=== PATIENT | male | born 1945 | race Caucasian/White ===

== ENCOUNTER 2017-10-26 18:02 | Emergency (ER) | payer OTHER ==
[2017-10-26 18:26] LABS: BASOPHILS % (AUTO) 0.2 % (0.0-5.0); EOSINOPHILS % (AUTO) 1.9 % (0.0-8.0); HEMATOCRIT 37.6 % (42-54); LYMPHOCYTES % (AUTO) 6.9 % (21.0-51.0); MEAN CORPUSCULAR HEMOGLOBIN 32.7 pg (27.0-33.0); MEAN CORPUSCULAR HGB CONC 34.1 g/dL (32.0-36.0); MEAN CORPUSCULAR VOLUME 95.9 fL (79-99); MONOCYTES % (AUTO) 5.6 % (3.0-13.0); NEUTROPHILS % (AUTO) 85.4 % (40.0-77.0); PLATELET COUNT (AUTO) 180 K/uL (130-400); RED BLOOD CELL COUNT(AUTO) 3.92 MIL/uL (4.50-6.20); RED CELL DISTRIBUTION WIDTH 14.8 % (11.0-15.5); WHITE BLOOD COUNT (AUTO) 5.8 K/uL (4.8-10.8)
[2017-10-26] MEDS ORDERED: MORPHINE SULFATE 4 MG/1ML SYG ONE (18:35)
[2017-10-26] MEDS ORDERED: ONDANSETRON HCL MDV 20ML 2 MG/ML VIAL ONE (18:36)
[2017-10-26 18:39] LABS: CARBON DIOXIDE 29 mmol/L (21-32); CHLORIDE 103 mmol/L (101-111); CREATININE 0.8 mg/dL (0.5-1.5); GLOMERULAR FILTR. RATE CALC 100 mL/min (>60); GLUCOSE,RANDOM 127 mg/dL (70-105); POTASSIUM 3.9 mmol/L (3.5-5.1); SODIUM SERUM 139 mmol/L (136-145); UREA NITROGEN, BLOOD 14 mg/dL (7-18)
[2017-10-26 18:53] LABS: ALANINE AMINOTRANSFERASE 43 U/L (12-78); ALBUMIN 3.5 g/dL (3.5-5.0); ASPARTATE AMINOTRANSFERASE 23 U/L (10-37); BILIRUBIN,TOTAL 0.8 mg/dL (0.2-1.0); CREATINE KINASE MB 0.6 ng/mL (0.5-3.6); CREATINE KINASE, TOTAL 58 U/L (21-232); LIPASE < 50 U/L (114-286); TOTAL PROTEIN, SERUM 6.7 g/dL (6.0-8.3)
[2017-10-26] MEDS ORDERED: IOPAMIDOL-370 75 ML VIAL IV ONE (19:06)
[2017-10-26 20:08] LABS: APPEARANCE,URINE Clear (CLEAR); BILIRUBIN,URINE Negative (NEGATIVE); COLOR,URINE Yellow (YELLOW); GLUCOSE, URINE (UA) Negative (NEGATIVE); KETONES,URINE Negative (NEGATIVE); LEUKOCYTE ESTERASE ,URINE Negative (NEGATIVE); NITRATE,URINE Negative (NEGATIVE); OCCULT BLOOD,URINE Negative (NEGATIVE); PROTEIN,URINE Negative (NEGATIVE); UROBILINOGEN,URINE 0.2 mg/dL (0.2-1.0)
== END 2017-10-26 20:30 | disposition home or self-care (01) ==
LOC: EDH 18:02
DX: N20.0 Calculus of kidney (principal); K59.00 Constipation, unspecified; I25.10 Atherosclerotic heart disease of native coronary artery without angina pectoris; I10 Essential (primary) hypertension; E78.5 Hyperlipidemia, unspecified; Z88.6 Allergy status to analgesic agent
CPT/HCPCS: 36415; 71045; 74178; 80053; 81003; 82550; 82553; 83690; 84484; 85025; 96361; 96374; 96375; 99285; J2270; Q9967

== ENCOUNTER → 2019-02-18 | Outpatient (CLI) | payer OTHER | END | disposition home or self-care (01) | LOC: RAH 08:49 | PROVIDERS: ATTEND Physical Medicine & Rehabilitation | DX: M25.511 Pain in right shoulder (principal) | CPT/HCPCS: 73030 ==

== ENCOUNTER → 2019-02-19 | Outpatient (CLI) | payer OTHER | END | disposition home or self-care (01) | LOC: RAH 14:24 | PROVIDERS: ATTEND Physical Medicine & Rehabilitation | DX: M47.812 Spondylosis without myelopathy or radiculopathy, cervical region (principal); M48.02 Spinal stenosis, cervical region; M25.78 Osteophyte, vertebrae | CPT/HCPCS: 72052 ==

== ENCOUNTER → 2020-03-10 | Outpatient (CLI) | payer OTHER ==
[~2020-03-10] MED LIST: GADODIAMIDE 10 MMOL/20 ML VIAL IV ONE
[2020-03-10 11:59] LABS: CREATININE 0.8 mg/dL (0.5-1.5)
== END | disposition home or self-care (01) ==
LOC: RAH 10:49
PROVIDERS: ATTEND Nurse Practitioner
DX: M47.12 Other spondylosis with myelopathy, cervical region (principal)
CPT/HCPCS: 36415; 82565; 84520; A9579

== ENCOUNTER → 2020-03-11 | Outpatient (CLI) | payer OTHER | END | disposition home or self-care (01) | LOC: RAH 13:29 | PROVIDERS: ATTEND Nurse Practitioner | DX: M47.12 Other spondylosis with myelopathy, cervical region (principal); M50.021 Cervical disc disorder at C4-C5 level with myelopathy; M25.78 Osteophyte, vertebrae; M48.02 Spinal stenosis, cervical region | CPT/HCPCS: 72040; 72156; A9579 ==

== ENCOUNTER → 2020-08-16 | Outpatient (CLI) | payer MEDICARE | END | disposition home or self-care (01) | LOC: RAH 13:48 | PROVIDERS: ATTEND Physical Medicine & Rehabilitation | DX: S22.32XA Fracture of one rib, left side, initial encounter for closed fracture (principal); M47.816 Spondylosis without myelopathy or radiculopathy, lumbar region; M54.5 Low back pain; M85.80 Other specified disorders of bone density and structure, unspecified site; X58.XXXA Exposure to other specified factors, initial encounter; Y92.89 Other specified places as the place of occurrence of the external cause; Y93.89 Activity, other specified; Y99.8 Other external cause status | CPT/HCPCS: 71100; 72100 ==

== ENCOUNTER → 2020-09-09 | Outpatient (CLI) | payer MEDICARE | END | disposition home or self-care (01) | LOC: RAH 07:25 | PROVIDERS: ATTEND Physical Medicine & Rehabilitation | DX: M48.061 Spinal stenosis, lumbar region without neurogenic claudication (principal); M51.27 Other intervertebral disc displacement, lumbosacral region; M62.830 Muscle spasm of back; M89.38 Hypertrophy of bone, other site | CPT/HCPCS: 72148 ==

== ENCOUNTER → 2023-05-03 | Outpatient (CLI) | payer MEDICARE ==
[~2023-05-03] MED LIST changes: +FINA5TAB41 PO; -GADODIAMIDE 10 MMOL/20 ML VIAL IV ONE; +METO-408 PO; +OMEP40CA21 PO; +TERA5CAP4 PO
== END | disposition home or self-care (01) ==
LOC: RAH 14:31
PROVIDERS: ATTEND Internal Medicine Nephrology
DX: M48.07 Spinal stenosis, lumbosacral region (principal); M54.50 Low back pain, unspecified; M47.816 Spondylosis without myelopathy or radiculopathy, lumbar region; M41.86 Other forms of scoliosis, lumbar region; N28.1 Cyst of kidney, acquired
CPT/HCPCS: 72148

== ENCOUNTER → 2024-04-06 | Outpatient (CLI) | payer MEDICARE | END | disposition home or self-care (01) | LOC: RAH 12:38 | PROVIDERS: ATTEND Internal Medicine Cardiovascular Disease | DX: I34.0 Nonrheumatic mitral (valve) insufficiency (principal); I11.9 Hypertensive heart disease without heart failure | CPT/HCPCS: 93306 ==

== ENCOUNTER 2024-09-26 14:05 | Emergency (ER) | payer OTHER, MEDICARE ==
[~2024-09-26] VITALS: Ht 170.2 cm; Wt 76.2 kg
--- NOTE | 2024-09-26 14:25 | EKG ---
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
[2024-09-26 14:41] LABS: BASOPHILS # (AUTO) 0.02 K/uL (0.00-0.20); BASOPHILS % (AUTO) 0.2 % (0.0-5.0); EOSINOPHILS # (AUTO) 0.04 K/uL (0.00-0.70); EOSINOPHILS % (AUTO) 0.4 % (0.0-8.0); HEMATOCRIT 41.1 % (42-54); IMMATURE GRANULOCYTE ABSOLUTE 0.03 K/uL (0-1); LYMPHOCYTES # (AUTO) 0.6 K/uL (1.0-4.8); MEAN CORPUSCULAR HGB CONC 33.1 g/dL (32.0-36.0); MEAN CORPUSCULAR VOLUME 96.7 fL (79-99); MONOCYTES # (AUTO) 0.7 K/uL (0.1-1.0); MONOCYTES % (AUTO) 6.5 % (3.0-13.0); NEUTROPHILS # (AUTO) 9.2 K/uL (1.8-7.7); NEUTROPHILS % (AUTO) 86.6 % (40.0-77.0); PLATELET COUNT (AUTO) 180 K/uL (130-400); RED BLOOD CELL COUNT(AUTO) 4.25 MIL/uL (4.50-6.20); RED CELL DISTRIBUTION WIDTH 13.2 % (11.0-15.5); WHITE BLOOD COUNT (AUTO) 10.6 K/uL (4.8-10.8)
--- NOTE | 2024-09-26 14:47 | ERN ---
General Chief Complaint: Constipation Stated Complaint: INTESTINAL BLOCKAGE,URINE RETENTION, NO BOWEL MOVE Time Seen by MD: 14:12 Time Seen by Midlevel: 14:12 Source: patient History of Present Illness Initial Comments The patient is an 79-year-old male with a past medical history of pancreatic cancer with pancreatic and small-bowel resection presenting to the emergency department for evaluation of constipation. Patient has been unable to have a bowel movement in four days. He does report having a history of constipation and has been disimpacted in the past. He was not passing gas at this time. He does have a history of BPH and states he was also not able to urinate. He last urinated 8 hours ago at approximately 6:00 a.m. today. He was now reporting some mild suprapubic abdominal pain. Denies any other symptoms at this time. Allergies: Coded Allergies: aspirin (Unverified Allergy, Intermediate, HIVES, ITCHING, 05/19/13) Home Meds Reported Medications Omeprazole (Omeprazole) 40 Mg Capsule.dr, 40 MG PO DAILY, CAP 04/28/23 Terazosin HCl (Terazosin HCl) 5 Mg Capsule, 5 MG PO DAILY, CAP 04/28/23 Finasteride (Finasteride) 5 Mg Tablet, 5 MG PO DAILY, TAB 04/28/23 Metoprolol Succinate (Metoprolol Succinate) 25 Mg Tab.er.24h, 25 MG PO DAILY, TAB 04/28/23 Past Medical History Past Medical History: No Pertinent History Medical History Other: Pancreatic CA Past Surgical History: Other Surgical History Other: WHIPPLE PROCEDURE, SHOULDER SURGERY, SPINAL SURGERY, Social History Social History: Lives with family ROS Dictation CONSTITUTIONAL: Negative except for HPI HEAD/FACE: Negative except for HPI EENT: Negative except for HPI RESPIRATORY: Negative except for HPI GASTROINTESTINAL/ABDOMINAL: Negative except for HPI GENITOURINARY: Negative except for HPI MUSCULOSKELETAL: Negative except for HPI INTEGUMENTARY: Negative except for HPI NEUROLOGICAL/PSYCH: Negative except for HPI HEMATOLOGIC/LYMPHATIC: Negative except for HPI All Systems Negative, Except as noted above. 13 point review of systems assessed and all negative except for above. Physical Exam Physical Exam Dictation Vital Signs reviewed General Appearance: Alert, oriented x 3, no acute distress, well developed, nourished. Head and Face: non-traumatic. Eyes: PERRL, pink conjunctivas, eyelid no trauma, anterior chamber with arcus senilis. Ears: Pinnas intact and no signs of trauma or erythema ear canals clear and no discharge TM no erythema Nose: No discharge, no bleeding. Oropharynx: Mouth normal, tongue pink, pharynx clear,no erythema, tonsils no exudates, no abscesses noted, mucous membrane moist Neck: Supple, non-tender, no thyromegaly, no masses, no JVD, no bruits Breast:Deferred Chest:No tenderness, no crepitus, no paradoxical movement, no retractions Lungs:Clear, well-ventilated, symmetric, no rales, no wheezing, no rhonchi, no stridor, good breath sounds bilaterally Heart: Regular rate, regular rhythm, no murmur, no gallops Vascular: no peripheral edema, Abdomen: Soft, positive bowel sounds, nondistended, no guarding, Suprapubic abdominal tenderness, no rebound, no masses no hepatomegaly, no splenomegaly, no Vu's sign, no hernias. Rectal: Deferred Genital: Deferred Neurological: Normal speech, motor function intact, sensory function intact Musculoskeletal: Neck nontender, full range of motion, back nontender, full range of motion, Extremities: nontender, full range of motion Skin: Color pink, dry, no turgor, no rash, no lacerations, no abrasions, no contusions. Lymphatic: Deferred Results Laboratory and Microbiology Lab and Micro Result Laboratory Tests Test 09/26/24 14:23 09/26/24 15:30 White Blood Count 10.6 K/uL (4.8-10.8) Red Blood Count 4.25 MIL/uL (4.50-6.20) L Hemoglobin 13.6 g/dL (14.0-18.0) L Hematocrit 41.1 % (42-54) L Mean Corpuscular Volume 96.7 fL (79-99) Mean Corpuscular Hemoglobin 32.0 pg (27.0-33.0) Mean Corpuscular Hemoglobin Concent 33.1 g/dL (32.0-36.0) Red Cell Distribution Width 13.2 % (11.0-15.5) Platelet Count 180 K/uL (130-400) Mean Platelet Volume 10.6 fL (7.5-10.5) H Immature Granulocyte % (Auto) 0.3 % (0-1) Neutrophils (%) (Auto) 86.6 % (40.0-77.0) H Lymphocytes (%) (Auto) 6.0 % (21.0-51.0) L Monocytes (%) (Auto) 6.5 % (3.0-13.0) Eosinophils (%) (Auto) 0.4 % (0.0-8.0) Basophils (%) (Auto) 0.2 % (0.0-5.0) Neutrophils # (Auto) 9.2 K/uL (1.8-7.7) H Lymphocytes # (Auto) 0.6 K/uL (1.0-4.8) L Monocytes # (Auto) 0.7 K/uL (0.1-1.0) Eosinophils # (Auto) 0.04 K/uL (0.00-0.70) Basophils # (Auto) 0.02 K/uL (0.00-0.20) Absolute Immature Granulocyte (auto 0.03 K/uL (0-1) Nucleated Red Blood Cells 0.0 % (0.0-0.19) White Cell Morphology Comment See comments Prothrombin Time 10.4 SEC (9.6-11.6) Prothromb Time International Ratio 0.98 (0.85-1.15) Activated Partial Thromboplast Time 25.9 SEC (26.3-35.5) L Sodium Level 131 mmol/L (136-145) L Potassium Level 3.8 mmol/L (3.5-5.1) Chloride Level 95 mmol/L (101-111) L Carbon Dioxide Level 29 mmol/L (21-32) Blood Urea Nitrogen 22 mg/dL (7-18) H Creatinine 0.9 mg/dL (0.5-1.3) Glomerular Filtration Rate Calc 86 mL/min (>90) Random Glucose 105 mg/dL (70-105) Total Calcium 9.8 mg/dL (8.5-10.1) Magnesium Level 2.00 mg/dL (1.80-2.40) Total Creatine Kinase 101 U/L (21-232) # Troponin I High Sensitivity 5 ng/L (4-75) B-Type Natriuretic Peptide 8 pg/mL (0-100) Urine Color YELLOW (YELLOW) Urine Appearance CLEAR (CLEAR) Urine pH 6.5 (5.0-8.0) Urine Specific [place] 1.021 (1.001-1.031) Urine Protein NEGATIVE mg/dL (NEGATIVE) Urine Glucose (UA) NEGATIVE mg/dL (NEGATIVE) Urine Ketones 5 mg/dL (NEGATIVE) H Urine Occult Blood MODERATE (NEGATIVE) H Urine Nitrate NEGATIVE (NEGATIVE) Urine Bilirubin NEGATIVE mg/dL (NEGATIVE) Urine Urobilinogen 0.2 mg/dL (0.2-1.0) Urine Leukocyte Esterase NEGATIVE [place]/uL Urine RBC 51-100 /HPF (0-1) H Urine WBC 2-5 /HPF (0-1) H Urine Bacteria RARE /HPF (None Seen) Labs Reviewed?: Yes MDM MDM: The patient is an 79-year-old male with a past medical history of pancr eatic cancer with pancreatic and small-bowel resection presenting to the emergency department for evaluation of constipation. Patient has been unable to have a bowel movement in four days. He does report having a history of constipation and has been disimpacted in the past. He was not passing gas at this time. He does have a history of BPH and states he was also not able to uri alejandra. He last urinated 8 hours ago at approximately 6:00 a.m. today. He was now reporting some mild suprapubic abdominal pain. Denies any other symptoms at this time. On physical examination the patient is not in any acute distress he appears to be uncomfortable and is unable to sit down due to his suprapubic abdominal fullness. We obtained basic blood work. CBC and chemistries are stable. A CT scan of the abdomen was performed which shows a distended gallbladder and severe constipation. A Ny catheter was placed and there was over 900 cc of urine output. Patient reports immediate relief. Patient states the constipation was being caused by the acute urinary retention. He was a longstanding history of this and has a urologist. The initial plan was to discharge patient with a Ny bag however after the patient was given GoLYTELY in the emergency department he states that he does not need the Ny catheter and would like to have it removed. Ny catheter was removed and the patient was discharged home. Differential diagnosis: Bowel obstruction, constipation, urinary retention bladder outlet obstruction There are no social concerns with this patient. Prescription drug management Prescriptions will include: None Medical management and examination interpretation discussions were had by me with other qualified healthcare professionals as indicated for the patient's care. ED Course Orders Procedure Category Date Status Time Cbc With Differential LAB 09/26/24 Complete 14:14 Prothrombin Time With LAB 09/26/24 Complete INR 14:14 B-Type Natriuretic LAB 09/26/24 Complete Peptide 14:14 Chest 1vw RAD 09/26/24 Resulted 14:14 12 Lead Ekg Tracing- EKG 09/26/24 Resulted Technical 14:14 Magnesium LAB 09/26/24 Complete 14:14 Creatine Kinase, Total LAB 09/26/24 Complete 14:14 Troponin I High LAB 09/26/24 Complete Sensitivity 14:14 Urinalysis Profile LAB 09/26/24 Complete 14:14 Partial LAB 09/26/24 Complete Thromboplastin Time 14:14 Basic Metabolic Panel LAB 09/26/24 Complete 14:14 Ct Abdomen/Pelvis W/O CT 09/26/24 Resulted Contrast 14:38 Bladder Scan CPOE 09/26/24 Transmitted 14:38 Nurse Driven Ny JAQUELIN 09/26/24 In Process Removal Pro 15:07 Lactulose 20 Gm/30 Ml PHA 09/26/24 Complete Udcup (Constulose 15:30 Peg 3350/Na PHA 09/26/24 Complete Sulf,Bicarb,Cl/Kcl 17:00 Current Medications Medications (Trade) Dose Ordered Sig/Willem Route PRN Reason Start Time Stop Time Status Last Admin Dose Admin Lactulose (Constulose 20gm/ 30ml Udcup) 20 gm ONCE ONCE PO 09/26/24 15:30 09/26/24 16:33 DC Polyethylene Glycol/ Electrolytes (Golytely/Colyte Soln) 4,000 ml ONCE ONCE PO 09/26/24 17:00 09/26/24 17:01 DC 09/26/24 17:22 Vital Signs Date Time Temp Pulse Resp B/P (MAP) Pulse Ox O2 Delivery O2 Flow Rate FiO2 09/26/24 17:00 98.1 70 15 141/80 99 Room Air* 0 21 09/26/24 15:57 98.4 78 15 150/80 100 Room Air* 0 21 09/26/24 14:16 98.2 94 18 160/82 95 Room Air 1737: Patient would like to go home. States he would not like to take the GoLYTELY while he was in the emergency department because he does not want have a bowel movement in the emergency department. 1800: Patient reports a bowel movement in the emergency department. He does re port feeling better. He believes the acute urinary retention was caused by the severe constipation so he would like his Ny catheter removed. If we do not remove it in the emergency department he states he will be your thinking it out. [place] [id number] [place] [id number] IMAGING REPORT Signed PATIENT: JILLIAN CURRIE MR#: [id number] : 1945 SEX: M AGE: 79 LOCATION: ED[facility] ORDER 15 STATUS: REG ER REPORT#: [id number] SERVICE 13 REASON: CP ORDERING PHYSICIAN: CANDIDO BANEGAS MD PROCEDURE: CXR1VW - CHEST 1VW CHEST 1VW HISTORY: Chest pain COMPARISON: 10/26/2017 FINDINGS: A frontal projection of the chest was obtained. No acute pulmonary infiltrates is seen. The heart is borderline enlarged. There are bilateral humeral prosthesis. Prominent interstitial markings are seen. No evidence of aortic calcification is seen. IMPRESSION: 1. No acute pulmonary infiltrate is seen. DICTATED BY: SHANIKA HERRON MD DATE: 09/26/241651 ELECTRONICALLY SIGNED BY: SHANIKA HERRON MD DATE: 09/26/241655 [address] [address] IMAGING REPORT Signed PATIENT: JILLIAN CURRIE MR#: [id number] : 1945 SEX: M AGE: 79 LOCATION: ED[facility] ORDER 15 STATUS: REG ER REPORT#: [id number] SERVICE 13 REASON: CP ORDERING PHYSICIAN: CANDIDO BANEGAS MD PROCEDURE: CXR1VW - CHEST 1VW CHEST 1VW HISTORY: Chest pain COMPARISON: 10/26/2017 FINDINGS: A frontal projection of the chest was obtained. No acute pulmonary infiltrates is seen. The heart is borderline enlarged. There are bilateral humeral prosthesis. Prominent interstitial markings are seen. No evidence of aortic calcification is seen. IMPRESSION: 1. No acute pulmonary infiltrate is seen. DICTATED BY: SHANIKA EHRRON MD DATE: 09/26/241651 ELECTRONICALLY SIGNED BY: SHANIKA HERRON MD DATE: 09/26/241655 DX & DISP Disposition: Discharge Departure Impression: Primary Impression: Urinary retention Additional Impression: Constipation Condition: Stable Additional Instructions: Your CT scan shows severe constipation. Please take the GoLYTELY as directed. I have given you a follow up with Urology for your acute urinary retention. If you develop any new or worsening symptoms please report to the ER for further evaluation. Referrals: ADRIANNA ABRAHAM MD (PCP) AJN MATHIAS MD, KENNETH A MD Time of Disposition: 17:38 I have reviewed the case, and I agree with, Diagnosis and Plan I performed the substantive portion of the visit. I have reviewed and personally made and approve the management plan that is documented in the note by myself or the CANELO. I acknowledge for responsibility for the patient's management plan. FRANK VILLALOBOS Sep 26, 2024 14:47
[2024-09-26 14:49] LABS: CREATININE 0.9 mg/dL (0.5-1.3); POTASSIUM 3.8 mmol/L (3.5-5.1)
[2024-09-26 15:06] LABS: INR 0.98 (0.85-1.15); PROTHROMBIN TIME 10.4 SEC (9.6-11.6)
[2024-09-26 15:07] LABS: B-TYPE NATRIURETIC PEPTIDE 8 pg/mL (0-100)
[2024-09-26 15:08] LABS: PARTIAL THROMBOPLASTIN TIME 25.9 SEC (26.3-35.5)
[2024-09-26] MEDS ORDERED: LACTULOSE 20 GM/30 ML UDCUP PO ONE (15:30)
[2024-09-26 15:43] LABS: ADD UA MICROSCOPIC YES; APPEARANCE,URINE CLEAR (CLEAR); BILIRUBIN,URINE NEGATIVE (NEGATIVE); COLOR,URINE YELLOW (YELLOW); GLUCOSE, URINE (UA) NEGATIVE (NEGATIVE); KETONES,URINE 5 mg/dL (NEGATIVE); LEUKOCYTE ESTERASE ,URINE NEGATIVE Leu/uL (NEGATIVE); NITRATE,URINE NEGATIVE (NEGATIVE); OCCULT BLOOD,URINE MODERATE (NEGATIVE); PH,URINE 6.5 (5.0-8.0); PROTEIN,URINE NEGATIVE (NEGATIVE); UROBILINOGEN,URINE 0.2 mg/dL (0.2-1.0)
[2024-09-26 15:45] LABS: BACTERIA,URINE RARE /HPF (None Seen); MUCUS,URINE RARE LPF (None Seen); RBC,URINE 51-100 /HPF (0-1)
--- NOTE | 2024-09-26 15:53 | HMCIMG ---
CT ABDOMEN/PELVIS W/O CONTRAST HISTORY: Obstruction, constipation COMPARISON: 04/28/2023 TECHNIQUE: Multiple sequential axial images of the abdomen and pelvis were obtained from the dome of the diaphragm through symphysis pubis. Patient was not given contrast through intravenous route. Oral contrast was not given. FINDINGS: No pleural effusion is seen bilaterally. There is no evidence of parenchymal disease or pulmonary nodule of the visualized lower lungs. Degenerative changes of the thoracolumbar spine are present. The heart is not enlarged. Pancreas not well seen limiting evaluation. There are surgical jadiel noted in the pancreatic region. Postcholecystectomy changes are seen. The liver, spleen, adrenal glands are unremarkable. There is no evidence of hydronephrosis bilaterally. There is left anterior renal cyst measuring 2.7 cm. Tiny 2 mm left renal pelvic stone is seen. Fecal material is seen in the colon. There are normal size retroperitoneal and mesenteric lymph nodes. No ascites is seen. Atherosclerotic changes are present. Pelvic sidewalls are symmetric bilaterally. Prostate gland is enlarged measuring 6.5 x 6 cm. Bladder is well distended without wall thickening. IMPRESSION: 1. Large amount of fecal material is seen in the colon suggestive of constipation. CT was performed with one or more following dose reduction techniques: automated exposure control, adjustment of the mA and kv according to patient's size, or use of a iterative reconstruction technique.
--- NOTE | 2024-09-26 16:00 | NUR ---
PLACED 18 FR 10 CC BALLOOM LEIGH CATHETER. CATHETER PATENT AND DRAINING TO GRAVITY. OBTAINED URINE SAMPLE AND SENDED TO LAB.
--- NOTE | 2024-09-26 16:30 | NUR ---
HAD A LARGE BOWEL MOVEMENT, HARD, NO VISIBLE BLOOD NOTED.
--- NOTE | 2024-09-26 16:56 | HMCIMG ---
CHEST 1VW HISTORY: Chest pain COMPARISON: 10/26/2017 FINDINGS: A frontal projection of the chest was obtained. No acute pulmonary infiltrates is seen. The heart is borderline enlarged. There are bilateral humeral prosthesis. Prominent interstitial markings are seen. No evidence of aortic calcification is seen. IMPRESSION: 1. No acute pulmonary infiltrate is seen.
[2024-09-26 17:00] VITALS: BP 141/80; PULSE 70; RESP 15; TEMP 98; O2SAT 99
--- NOTE | 2024-09-26 17:20 | NUR ---
GAVE PATIENT GO LYTLY. EDUCATED PATIENT ON HOW TO DRINK THIS MEDICATION AND ITS SIDE EFFECTS. PATIENT AND SIGNIFICANRT OITHER VERBALIZED UNDERSTANDING.
[2024-09-26] MEDS: PEG 3350/NA SULF,BICARB,CL/KCL 4000 ML SOLN PO ONE (17:22)
--- NOTE | 2024-09-26 18:00 | NUR ---
REMOVED LEIGH CATHETER PER PHYSICIANS ORDERS.
--- NOTE | 2024-09-26 18:36 | NUR ---
DISCUSSED PLAN OF CARE AND DISCHARGE ORDERS. PATIENT VERBALIZED UNDERSTANDING.
== END 2024-09-26 18:38 | disposition home or self-care (01) ==
LOC: EDH 14:05
DX: K59.00 Constipation, unspecified (principal); R33.8 Other retention of urine; Z79.899 Other long term (current) drug therapy; Z88.6 Allergy status to analgesic agent; Z90.49 Acquired absence of other specified parts of digestive tract
CPT/HCPCS: 36415; 51701; 71045; 74176; 80048; 81001; 82550; 83735; 83880; 84484; 85025; 85610; 85730; 93005; 99285